=== PATIENT | female | born 1955 | race Caucasian/White ===

== ENCOUNTER 2017-04-21 09:37 | Emergency (ER) | payer OTHER ==
[2017-04-21 10:02] VITALS: BP 133/93
[2017-04-21] MEDS ORDERED: Albuterol 2.5 MG/3 ML NEB.SOL* (0.083%) INH ONE (10:21)
[2017-04-21] MEDS ORDERED: Ipratropium 0.5MG/2.5ML NEB* 0.5 MG/2.5 ML NEB.SOLN INH ONE (10:21)
--- NOTE | 2017-04-21 11:09 | UC ---
Respiratory Complaint HPI - HPI Summary HPI Summary: 62 yo smoker with productive cough and chest tightness x 3 days no f/c sinus pressure - History of Current Complaint Chief Complaint: UCRespiratory Stated Complaint: RESP ISSUE Time Seen by Provider: 04/21/17 10:13 Hx Obtained From: Patient Onset/Duration: Gradual Onset Severity Initially: Mild Severity Currently: Moderate Pain Intensity: 2 Pain Scale Used: 0-10 Numeric Character: Cough: Productive Aggravating Factors: Deep Breaths Alleviating Factors: Bronchodilator Associated Signs And Symptoms: Positive: Dyspnea, Wheezing, Nasal Congestion, Sinus Discomfort - Allergies/Home Medications Allergies/Adverse Reactions: Allergies Allergy/AdvReac Type Severity Reaction Status Date / Time Lisinopril Allergy Swelling Verified 07/28/16 08:34 Of Face,Lips,& Throat Varenicline [From Chantix] Allergy See Comment Verified 07/28/16 08:34 Home Medications: Home Medications Albuterol HFA INHALER* [Ventolin HFA Inhaler*] 1 puff PO PRN 04/21/17 [History] Levocetirizine Dihydrochloride [Xyzal Allergy 24Hr] 5 mg PO DAILY 04/21/17 [ History Confirmed 04/21/17] Omeprazole [Prilosec] 20 mg PO DAILY 04/21/17 [History Confirmed 04/21/17] PMH/Surg Hx/FS Hx/Imm Hx Cardiovascular History: Hypertension Respiratory History: COPD, Asthma, Bronchitis - Surgical History Surgical History: Yes Surgery Procedure, Year, and Place: csection x2. tonsillectomy as a child. CARDIAC CATH, 2010 - Family History Known Family History: Positive: Cardiac Disease - [place] - Social History Alcohol Use: Weekly Substance Use Type: None Smoking Status (MU): Current Every Day Smoker Type: Cigarettes Amount Used/How Often: 1 PPD - Immunization History Most Recent Influenza Vaccination: may 2016 Review of Systems Constitutional: Negative Skin: Negative Eyes: Negative ENT: Nasal Discharge, Sinus Congestion, Sinus Pain/Tenderness Respiratory: Cough Cardiovascular: Negative Gastrointestinal: Negative Genitourinary: Negative Motor: Negative Neurovascular: Negative Musculoskeletal: Negative Neurological: Negative Psychological: Negative All Other Systems Reviewed And Are Negative: Yes Physical Exam Triage Information Reviewed: Yes Appearance: Well-Appearing, No Pain Distress, Well-Nourished Vital Signs: Initial Vital Signs Temp 97.9 F 04/21/17 09:58 Pulse 103 04/21/17 09:58 Resp 18 04/21/17 09:58 BP 133/93 04/21/17 09:58 Pulse Ox 98 04/21/17 09:58 Vital Signs Reviewed: Yes Eyes: Positive: Conjunctiva Clear ENT: Positive: Hearing grossly normal, Pharynx normal, Nasal congestion, Nasal drainage. Negative: Tonsillar swelling, Trismus, Muffled/hoarse voice Dental Exam: Normal Neck: Positive: Supple, Nontender Respiratory: Positive: No respiratory distress, No accessory muscle use, Respiratory distress, Wheezing Cardiovascular: Positive: RRR, No Murmur. Negative: Tachycardia Musculoskeletal: Positive: ROM Intact, No Edema Neurological: Positive: Alert Psychological Exam: Normal Skin Exam: Normal UC Diagnostic Evaluation - Laboratory O2 Sat by Pulse Oximetry: 98 Re-Evaluation - Re-Evaluation First Eval Change: Improved Comment: better air movement/decreased wheezing Respiratory Course/Dx - Differential Dx/Diagnosis Provider Diagnoses: acute bronchitis with bronchospasm Discharge - Discharge Plan Condition: Stable Disposition: HOME Prescriptions: Amoxicillin PO (*) [Amoxicillin 875 MG (*)] 875 mg PO BID #20 tab Prednisone [Deltasone] 40 mg PO DAILY #10 tab Patient Education Materials: Acute Bronchitis (ED) Referrals: Collette Conrad MD [Primary Care Provider] - 5 Days Additional Instructions: use your albuterol inhaler 2 puffs 4x day for 5 days
== END 2017-04-21 11:24 | disposition home or self-care (01) ==
LOC: UCEAST 09:37
DX: J20.9 Acute bronchitis, unspecified (principal); I10 Essential (primary) hypertension; F17.210 Nicotine dependence, cigarettes, uncomplicated
CPT/HCPCS: 99212; G0463; J7644

== ENCOUNTER 2017-07-27 09:02 | Emergency (ER) | payer OTHER ==
--- NOTE | 2017-07-27 10:14 | UC ---
Skin Complaint HPI - HPI Summary HPI Summary: SEVERAL DAYS OF SPREADING RASH ON NOSE AND NASOLABIAL FOLDS. RASH IS RED, FLAKING, CRUSTY AND OOZING. PT REPORTS SHE BLOWS HER NOSE DAILY ALL DAY DUE TO BAD ALLERGIES. STARTED USING BACTROBAN OINTMENT AND BAG BALM. - History of Current Complaint Chief Complaint: UCSkin Time Seen by Provider: 07/27/17 09:56 Stated Complaint: RASH Hx Obtained From: Patient Onset/Duration: Gradual Onset, Lasting Days, Still Present Timing: Constant Onset Severity: Moderate Current Severity: Moderate Pain Intensity: 6 Pain Scale Used: 0-10 Numeric Location: Face Aggravating Factor(s): Touch Alleviating Factor(s): Nothing Associated Signs & Symptoms: Positive: Rash, Tenderness - Allergy/Home Medications Allergies/Adverse Reactions: Allergies Allergy/AdvReac Type Severity Reaction Status Date / Time Lisinopril Allergy Swelling Verified 07/27/17 09:18 Of Face,Lips,& Throat Varenicline [From Chantix] Allergy See Comment Verified 07/27/17 09:18 Home Medications: Home Medications Levothyroxine TAB* [Synthroid 150 MCG TAB*] 150 mcg PO EVERY OTHER DAY 07/27/17 [History Confirmed 07/27/17] Review of Systems Constitutional: Negative Skin: Rash Respiratory: Negative Cardiovascular: Negative Gastrointestinal: Negative All Other Systems Reviewed And Are Negative: Yes PMH/Surg Hx/FS Hx/Imm Hx Endocrine History: Hypothyroidism Cardiovascular History: Hypertension GI/ History: Gastroesophageal Reflux Psychological History: Depression - Surgical History Surgical History: Yes Surgery Procedure, Year, and Place: csection x2. tonsillectomy as a child. CARDIAC CATH, 2010 - Family History Known Family History: Positive: Cardiac Disease - [place], Hypertension - Social History Alcohol Use: Daily Alcohol Amount: 3-4 beers Substance Use Type: None Smoking Status (MU): Heavy Every Day Tobacco Smoker Type: Cigarettes Amount Used/How Often: 1 PPD Household Exposure Type: Cigarettes - Immunization History Most Recent Influenza Vaccination: 05/2017 Physical Exam Triage Information Reviewed: Yes Appearance: Well-Appearing, No Pain Distress, Well-Nourished Vital Signs: Initial Vital Signs Temp 96.8 F 07/27/17 09:09 Pulse 102 07/27/17 09:09 Resp 22 07/27/17 09:09 BP 174/102 07/27/17 09:09 Pulse Ox 98 07/27/17 09:09 Vital Signs Reviewed: Yes Eyes: Positive: Conjunctiva Clear ENT: Positive: Hearing grossly normal Neck: Positive: Supple Respiratory: Positive: No respiratory distress, No accessory muscle use Cardiovascular: Positive: Pulses Normal Abdomen Description: Positive: Soft Musculoskeletal: Positive: No Edema Neurological: Positive: Alert Psychological: Positive: Age Appropriate Behavior Skin: Positive: rashes - FLAKING, RAW, EXCORIATED, ERYTHEMATOUS RASH ON NOSE AND NASOLABIAL FOLDS WITH YELLOW CRUST Course/Dx - Diagnoses Provider Diagnoses: IMPETIGO Discharge - Discharge Plan Condition: Stable Disposition: HOME Prescriptions: Cephalexin CAP* [Keflex 500 CAP*] 1,000 mg PO BID #40 cap Patient Education Materials: Impetigo (ED) Referrals: Collette Conrad MD [Primary Care Provider] - If Needed Additional Instructions: CONTINUE BACTROBAN 3 TIMES DAILY. TAKE ANTIBIOTICS FOR FULL COURSE. FOLLOW-UP IF NOT IMPROVING WITH TREATMENT. YOUR BLOOD PRESSURE WAS ELEVATED TODAY. THIS MAY BE DUE TO YOUR ACUTE CONDITION. MONITOR AND FOLLOW-UP WITH YOUR PCP WITHIN 4 WEEKS IF IT HAS NOT RETURNED TO NORMAL.
[2017-07-27 10:18] VITALS: BP 170/100
== END 2017-07-27 10:20 | disposition home or self-care (01) ==
LOC: UCEAST 09:02
DX: L01.00 Impetigo, unspecified (principal); F17.210 Nicotine dependence, cigarettes, uncomplicated; Z88.8 Allergy status to other drugs, medicaments and biological substances; E03.9 Hypothyroidism, unspecified; I10 Essential (primary) hypertension
CPT/HCPCS: 99212; G0463

== ENCOUNTER 2017-08-23 09:43 | Emergency (ER) | payer OTHER ==
[2017-08-23] MEDS ORDERED: Ipratropium 0.5MG/2.5ML NEB* 0.5 MG/2.5 ML NEB.SOLN INH ONE (11:27)
[2017-08-23] MEDS ORDERED: Albuterol 2.5 MG/3 ML NEB.SOL* (0.083%) INH ONE (11:27)
[2017-08-23 12:10] VITALS: BP 140/88
--- NOTE | 2017-09-05 13:05 | UC ---
Cameron Valle Tecjoon, scribed for Kym John DO on 08/23/17 at 1131 . Respiratory Complaint HPI - HPI Summary HPI Summary: This patient is a 62 year old female presenting to [facility] with a chief complaint of red sores around nose and cough. Patient states her rash developed around a week ago and she saw her PCP for medication 3 days ago. In the same time, 3 days ago, she developed a nonproductive cough that, as of today, has developed into a productive cough with yellow phlegm. Patient states her chest hurts from coughing and she began to have yellow drainage from her nose. The pain is described as aching. The pain is rated 10/10 in severity. Symptoms aggravated by nothing. Symptoms alleviated by nothing. Patient additionally reports diaphoresis, chills. Patient denies sore throat, ear ache. - History of Current Complaint Chief Complaint: UCRespiratory Stated Complaint: RESP COMPLAINT Hx Obtained From: Patient Onset/Duration: Gradual Onset, Lasting Days - 3, Still Present Timing: Constant Severity Currently: Severe Pain Intensity: 10 Pain Scale Used: 0-10 Numeric Character: Cough: Nonproductive, Cough: Productive, Sputum Description: - yellow Aggravating Factors: Nothing Alleviating Factors: Nothing Associated Signs And Symptoms: Positive: Negative - sore throat, ear ache, Chills - Allergies/Home Medications Allergies/Adverse Reactions: Allergies Allergy/AdvReac Type Severity Reaction Status Date / Time Lisinopril Allergy Swelling Verified 07/27/17 09:18 Of Face,Lips,& Throat Varenicline [From Chantix] Allergy See Comment Verified 07/27/17 09:18 PMH/Surg Hx/FS Hx/Imm Hx - Additional Past Medical History Additional PMH: Impetigo Previously Healthy: No Cardiovascular History: Hypertension Psychological History: Depression - Surgical History Surgical History: Yes Surgery Procedure, Year, and Place: csection x2. tonsillectomy as a child. CARDIAC CATH, 2010 - Family History Known Family History: Positive: Cardiac Disease - [place], Hypertension - Social History Occupation: Employed Full-time Lives: With Family Alcohol Use: Daily Alcohol Amount: 3-4 beers Substance Use Type: None Smoking Status (MU): Heavy Every Day Tobacco Smoker Type: Cigarettes Amount Used/How Often: 1 PPD Household Exposure Type: Cigarettes - Immunization History Most Recent Influenza Vaccination: 05/2017 Review of Systems Constitutional: Negative - diaphoresis, chills Skin: Rash ENT: Negative - sore throat, ear ache, Nasal Discharge Respiratory: Cough Musculoskeletal: Other: - bodyache on extremities All Other Systems Reviewed And Are Negative: Yes Physical Exam Triage Information Reviewed: Yes Vital Signs: Initial Vital Signs Temp 98.3 F 08/23/17 10:05 Pulse 111 08/23/17 10:05 Resp 20 08/23/17 10:05 BP 138/86 08/23/17 10:05 Pulse Ox 97 08/23/17 10:05 - Additional Comments Appearance: Ill appearing, No Pain Distress, Well-Nourished Eyes: conjunctiva clear, no discharge ENT: Hearing grossly normal, no muffled/hoarse voice. TMs normal, negative tonsillar swelling, negative tonsillar exudate, negative trismus. Neck: Normal, Supple Respiratory/Lung Sounds: Scattered wheezing Cardiovascular: RRR, No murmur Musculoskeletal: Normal Neurological: Alert, muscle tone normal Psychiatric:Normal, age appropriate behavior Skin: Erythematous patch surrounding nose; honey-crusted inside and outside nasal passages. Diagnostic Evaluation - Laboratory O2 Sat by Pulse Oximetry: 97 Respiratory Course/Dx - Course Course Of Treatment: This patient is a 62 year old female presenting to [facility] with a chief complaint of red sores around nose and cough. Patient states her rash developed around a week ago and she saw her PCP for medication 3 days ago. In the same time, 3 days ago, she developed a nonproductive cough that, as of today, has developed into a productive cough with yellow phlegm. Patient states her chest hurts from coughing and she began to have yellow drainage from her nose. The pain is described as aching. The pain is rated 10/10 in severity. Symptoms aggravated by nothing. Symptoms alleviated by nothing. Patient additionally reports diaphoresis, chills. Patient denies sore throat, ear ache. In the [facility] course the patient was given Albuterol, Ipratropium. The patient will be diagnosed with Impetigo, Influenza, COPD exacerbation, and Bronchospasm. Patient will be discharged with prescription for Albuterol, benzonatate, doxycycline, mucinex, guaiatussin, Tamiflu, and deltasone and follow up from PCP. The patient is agreeable with this plan. Medications reviewed. Allergies reviewed. High blood pressure noted. The patient has been encouraged to quit smoking. - Differential Dx/Diagnosis Provider Diagnoses: Impetigo, Influenza, COPD exacerbation, Bronchospasm Discharge - Discharge Plan Condition: Stable Disposition: HOME Prescriptions: Albuterol HFA INHALER* [Ventolin HFA Inhaler*] 2 puff INH Q4H PRN #1 mdi PRN Reason: Sob/Wheezing Benzonatate CAP* [Tessalon 100 MG CAP*] 100 mg PO TID #30 cap DOXYcycline CAP(*) [DOXYcycline 100MG CAP(*)] 100 mg PO BID #20 cap guaiFENesin ER TAB [Mucinex*] 600 mg PO BID PRN #1 box PRN Reason: Cough Guaifenesin-Codeine [Guaiatussin AC] 5 - 10 ml PO BEDTIME PRN #100 ml MDD 10ml PRN Reason: Cough Oseltamivir CAP* [Tamiflu CAP*] 75 mg PO BID #10 cap predniSONE TAB* [Deltasone TAB*] 40 mg PO DAILY #10 tab Patient Education Materials: Impetigo (ED), Influenza (ED), COPD (Chronic Obstructive Pulmonary Disease) (ED), Bronchospasm (ED) Forms: *Work Release Referrals: Collette Conrad MD [Primary Care Provider] - 2 Days Additional Instructions: FOR INFLUENZA, PLEASE TAKE TAMIFLU 2 TIMES DAILY FOR 5 DAYS FOR YOUR COUGH: INHALED BRONCHODILATORS: You have received a prescription for an inhaled bronchodilator -- a medication which stimulates the airways in the lung to dilate. This improves the flow of air in asthma, bronchitis, and emphysema. These medicines have some similarity to adrenaline, and can cause similar side effects: shakiness, racing heart, and a sense of nervousness. These side effects decrease with time. Contact your doctor if these side effects are severe. Do not over-use the medicine. Too-frequent use of the inhaler may make it ineffective. Call your doctor if the inhaler is not controlling your symptoms at the prescribed doses. COUGH-SUPPRESSANT & EXPECTORANT MEDICATION: You are to use a cough medication as needed for relief of symptoms. This medicine is a combination of an expectorant (to make the mucous thinner and more easily "coughed up") and a cough suppressant (to reduce the frequency of coughing). The cough-suppressant medicine is related to narcotics. You may experience mild nausea and sleepiness. Some patients who are very sensitive to narcotics may have stomach pain from this medicine. Taking the medicine with food reduces these side effects. Do not drive or work with machinery until you know how this medicine affects you. The expectorant should have no side effects. Iodine-containing expectorants (such as organidin) should not be taken by persons with active thyroid disease unless approved by your doctor. Call the doctor if you develop shortness of breath, hives, rash, itching, lightheadedness, or severe nausea and vomiting. EXPECTORANT MEDICATION: WE SENT IN A SCRIPT FOR MUCINEX SO THAT IT IS EASIER FOR YOU TO PICK THE RIGHT MED AT THE PHARMACY. HOWEVER, YOU CAN ALSO GO TO THE [employer] [facility] AND BUY PLAIN GUAIFENESIN WITHOU BINDERS OR FILLERS. An expectorant medicine has been prescribed. This type of drug makes mucous thinner, helping the sinuses, nose, and bronchial tubes to remain free of pus and mucous. Expectorants make a cough less severe and more comfortable, and help infected sinuses drain. In general, antihistamines defeat the purpose of the expectorant by making mucous thicker. They should be avoided unless specifically recommended by your physician. TESSALON PERLES: You have received a prescription for Tessalon Perles (benzonatate). This is a non-narcotic medicine for relief of cough. It usually works in about 15- 20 minutes and lasts around four hours. Tessalon Perles should be swallowed. They should not be chewed or dissolved in the mouth (this can produce temporary numbing of the mouth and choking can occur). If you develop any adverse effects such as wheezing, shortness of breath, hives, rash, itching, or lightheadedness, please return at once. FOR IMPETIGO DOXYCYCLINE: Doxycycline (Vibramycin, Doryx) is an antibiotic of the tetracycline family. This type of drug is useful for infections of the respiratory tract and genital tract, and is sometimes used for intestinal infections. Unlike most tetracyclines, doxycycline can be taken with food. It is longer acting, and (usually) less prone to side effects than regular tetracycline. Tetracycline antibiotics can stain immature teeth and SHOULD NOT BE TAKEN BY CHILDREN, NURSING MOTHERS, OR WOMEN. Tetracyclines can make you more prone to sunburn. Abdominal cramping, nausea, and diarrhea are occasional side effects. Women may experience vaginal yeast infections. Call the doctor at once if you develop hives, itching, shortness of breath , or lightheadedness. DISCUSSED, DOXY ALSO INCREASES YOUR RISK OF SUNBURN. COVER UP WHEN YOU GO OUTSIDE. ANYTIME YOU TAKE AN ANTIBIOTIC, IT IS IMPORTANT TO REPLENISH THE BODY'S SUPPLY OF "GOOD BACTERIA." YOU CAN GET GOOD BACTERIA FROM HIGH QUALITY CULTURED FOODS SUCH LOCAL Y[employer]URT, SOUR KRAUT, KHOI BILLY, NATURALLY FERMENTED PICKLES AND PROBIOTIC DRINKS. YOU CAN ALSO GET GOOD BACTERIA FROM A PROBIOTIC SUPPLEMENT. The documentation as recorded by the Cameron randall Tecjoon accurately reflects the service I personally performed and the decisions made by me, Kym John DO.
== END 2017-08-23 12:23 | disposition home or self-care (01) ==
LOC: UCEAST 09:43
DX: L01.00 Impetigo, unspecified (principal); J11.1 Influenza due to unidentified influenza virus with other respiratory manifestations; J44.1 Chronic obstructive pulmonary disease with (acute) exacerbation; J98.01 Acute bronchospasm; I10 Essential (primary) hypertension; F32.9 Major depressive disorder, single episode, unspecified; Z88.8 Allergy status to other drugs, medicaments and biological substances; F17.210 Nicotine dependence, cigarettes, uncomplicated
CPT/HCPCS: 87502; 99212; G0463; J7644

== ENCOUNTER 2018-11-01 10:51 | Observation (INO) | payer OTHER ==
--- NOTE | 2018-11-01 11:15 | ED ---
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 She thinks she took the medicine around 0830 1000. She also drank beer. Pt is very somnolent at bedside. She denies pain, nausea, hurting herself. She has been on anti-depression medication for a year. Her son completed suicide around this date a few years ago. - History Of Current Complaint Chief Complaint: EDMentalHealth Time Seen by Provider: 11/01/18 11:08 Hx Obtained From: Patient Onset/Duration: Still Present Timing: Constant Character: Depressed Aggravating Factor(s): Recent Stress Has Suicidal: Reports: Thoughts, Demonstrates Gesture - med OD - Allergies/Home Medications Allergies/Adverse Reactions: Allergies Allergy/AdvReac Type Severity Reaction Status Date / Time lisinopril Allergy Swelling Verified 11/01/18 11:00 Of Face,Lips,& Throat varenicline Allergy Unknown Verified 11/01/18 11:00 Reaction Details Home Medications: Home Medications Albuterol HFA INHALER* [Ventolin HFA Inhaler*] 2 puff INH Q2HR PRN 11/01/18 [ History Confirmed 11/01/18] Aspirin EC TAB* [Ecotrin EC Low Dose 81 MG*] 81 mg PO BEDTIME 11/01/18 [History Confirmed 11/01/18] Naproxen Sodium [Aleve] 440 mg PO QAM PRN 11/01/18 [History Confirmed 11/01/18] Omeprazole (Nf) [Prilosec (NF)] 40 mg PO DAILY 11/01/18 [History Confirmed 11/01] Venlafaxine EXT RELEASE CAP* [Effexor Xr CAP*] 150 mg PO DAILY 11/01/18 [ History Confirmed 11/01/18] PMH/Surg Hx/FS Hx/Imm Hx Previously Healthy: No Endocrine/Hematology History: Reports: Hx Thyroid Disease - HYPO Denies: Hx Diabetes Cardiovascular History: Reports: Hx Hypertension Respiratory History: Denies: Hx Asthma, Hx Chronic Obstructive Pulmonary Disease (COPD) GI History: Denies: Hx Ulcer Musculoskeletal History: Denies: Hx Scoliosis Neurological History: Denies: Hx Headaches, Other Neuro Impairments/Disorders - Surgical History Surgery Procedure, Year, and Place: csection x2. tonsillectomy as a child. CARDIAC CATH, 2010 Infectious Disease History: No Infectious Disease History: Denies: Hx Clostridium Difficile, Hx Hepatitis, Hx Human Immunodeficiency Virus (HIV), Hx of Known/Suspected MRSA, Hx Shingles, Hx Tuberculosis, History Other Infectious Disease, Traveled Outside the [place] in Last 30 Days - Family History Known Family History: Positive: Cardiac Disease - [place], Hypertension - Social History Occupation: Employed Full-time Lives: With Family Alcohol Use: Daily Alcohol Amount: 3-4 beers Hx Substance Use: No Substance Use Type: Reports: None Hx Tobacco Use: Yes Smoking Status (MU): Heavy Every Day Tobacco Smoker Type: Cigarettes Amount Used/How Often: 1 PPD Review of Systems Positive: Fatigue Negative: Nausea Psychological: Other - pos: sleepy Positive: Depressed All Other Systems Reviewed And Are Negative: Yes Physical Exam - Summary Physical Exam Summary: Constitutional: Well-developed, Well-nourished, Alert. (-) Distressed Skin: Warm, Dry HENT: Normocephalic; Atraumatic. Dry oral mucosa. Eyes: Conjunctiva normal. Pupils are 2-3mm bilaterally Neck: Musculoskeletal ROM normal neck. (-) JVD, (-) Stridor, (-) Tracheal deviation Cardio: Rhythm regular, rate normal, Heart sounds normal; Intact distal pulses; The pedal pulses are 2+ and symmetric. Radial pulses are 2+ and symmetric. (-) Murmur Pulmonary/Chest wall: Effort normal. (-) Respiratory distress, (-) Wheezes, (-) Rales Abd: Soft, (-) tenderness, (-) Distension, (-) Guarding, (-) Rebound. Good bowel sounds. Musculoskeletal: (-) Edema Lymph: (-) Cervical adenopathy Neuro: Alert, Oriented x3 Psych: Sedated, sleepy. Depressed admits to feeling suicidal at times. Triage Information Reviewed: Yes Vital Signs On Initial Exam: Initial Vitals Temp Pulse Resp BP Pulse Ox 98.4 F 119 18 164/121 94 11/01/18 10:56 11/01/18 10:56 11/01/18 10:56 11/01/18 10:56 11/01/18 10:56 Vital Signs Reviewed: Yes Diagnostics - Vital Signs Vital Signs Temp Pulse Resp BP Pulse Ox 11/01/18 10:56 98.4 F 119 18 164/121 94 - Laboratory Result Diagrams: 11/01/18 11:59 11/01/18 18:21 Lab Statement: Any lab studies that have been ordered have been reviewed, and results considered in the medical decision making process. - EKG 1204 Cardiac Rate: NL - 98 bpm EKG Rhythm: Sinus Rhythm Summary of EKG Findings: Normal sinus rhythm at 98 bpm, normal DC, normal QRS, prolonged QTc 537, normal axis, normal ST, normal T-waves. 1546 Cardiac Rate: NL - 83 bpm EKG Rhythm: Sinus Rhythm Summary of EKG Findings: Normal sinus rhythm at 83 bpm, normal DC, normal QRS, prolonged QTc of 505, normal axis, normal ST, T-wave inversions in V1 and V2. QT prolongation improved from previous EKG done today. Re-Evaluation - Re-Evaluation 1 Re-Evaluation Time: 15:05 Change: Unchanged Comment: Providing update to patient's partner. 2 Re-Evaluation Time: 15:31 Change: Improved Comment: Pt is more alert, she has dry mouth. Course/Dx - Course Course Of Treatment: Pt is a 63 y/o F brought in by ambulance and police presenting s/p overdose of Flexeril and HCTZ as SI attempt around 1527-4724. She also drank beer. Pt is very somnolent at bedside. She has been on anti- depression medication for a year. Her son completed suicide around this date a few years ago. PE finds the pt sedated and sleepy, depressed, admits to feeling suicidal at times. UA is unremarkable. Toxicology is negative. Lab work shows MCH: 33; chemistry shows decreased Na, K, Cl; BUN: 5, BUN/C ratio: 7.2, glucose: 102, alkaline phosphatase: 116. EKG shows normal sinus rhythm at 98 bpm with prolonged QTc 537. Repeat EKG shows NSR at 83bpm, improved QT prolongation 505 from previous EKG today, T-wave inversion in V1 and V2. Patient given fluids, activated charcoal, potassium chloride, nicotine inhaler in ED. Poison control recommends 24 hour medical observation due to pt's unknown ingestion and taking Effexor. Consulted with Dr. Shepherd, hospitalist, who will accept patient for admission. - Differential Dx/Clinical Impression Provider Diagnosis: Overdose, Suicidal ideation - Physician Notifications Discussed Care Of Patient With: Jazmin L Dill - hospitalist Time Discussed With Above Provider: 15:44 Instructed by Provider To: Admit As Inpatient - Critical Care Time Critical Care Time: 30-74 min - 35 mins CCT Discharge - Sign-Out/Discharge Documenting (check all that apply): Patient Departure - ADMIT Patient Received Moderate/Deep Sedation with Procedure: No - Discharge Plan Disposition: ADMITTED TO [facility] - Attestation Statements Document Initiated by Scribe: Yes Documenting Scribe: Greg Raymundo Provider For Whom Scribe is Documenting (Include Credential): Dr. Rayne Russo MD Scribe Attestation: I, Greg Raymundo, scribed for Dr. Rayne Russo MD on at 1917. Consult Consult: [id number]: Spoke with Poison Control Due to pt's unknown ingestion, and taking Effexor, they recommended 24 hours medical observation.
[2018-11-01] MEDS ORDERED: NS 0.9% 1000 ML** 1,000 ML IV ONE (11:38)
[2018-11-01] MEDS ORDERED: Charcoal 50 GM/Sorbitol* 50 GM/240 ML BTL NG TUBE ONE (11:39)
[2018-11-01 12:25] LABS: ABS Basophils 0 10^3/ul (0-0.2); ABS Eosinophils 0 10^3/ul (0-0.6); ABS Lymphocytes 1.2 10^3/ul (1.0-4.8); ABS Monocytes 0.5 10^3/ul (0-0.8); ABS Neutrophils 3.4 10^3/ul (1.5-7.7); ABS Nucleated RBC 0 10^3/ul; Eosinophil % 0.2 %; Hematocrit 39 % (33-41); Hemoglobin 13.3 g/dL (12.0-16.0); Lymphocyte % 23.6 %; Mean Corpuscular HGB Conc 35 g/dL (31-36); Mean Corpuscular Hemoglobin 33 pg (27-31); Mean Corpuscular Volume 96 fL (80-97); Mean Platelet Volume 7.7 fL (7.4-10.4); Nucleated Red Blood Cells % 0; Platelet Count 168 10^3/uL (150-450); Red Blood Count 4.03 10^6 /uL (3.70-4.87); Red Cell Distribution Width 13 % (10.5-15); White Blood Count 5.2 10^3/uL (3.5-10.8)
[2018-11-01 12:45] LABS: ALT 18 U/L (7-52); AST 30 U/L (13-39); Albumin 3.9 g/dL (3.2-5.2); Albumin/Globulin Ratio 1.5 (1-3); Alkaline Phosphatase 116 U/L (34-104); Anion Gap 9 mmol/L (2-11); BUN/Creatinine Ratio 7.2 (8-20); Blood Urea Nitrogen 5 mg/dL (6-24); CO2 Carbon Dioxide 27 mmol/L (22-32); Calcium 9.1 mg/dL (8.6-10.3); Chloride 94 mmol/L (101-111); EGFR African American 104.7 (>60); EGFR Non-African American 86.5 (>60); Globulin 2.6 g/dL (2-4); Glucose 102 mg/dL (70-100); Potassium 3.4 mmol/L (3.5-5.0); Sodium 130 mmol/L (135-145); Total Protein 6.5 g/dL (6.4-8.9)
[2018-11-01 12:46] LABS: Acetaminophen < 15 mcg/mL; Alcohol < 10 mg/dL (<10); Salicylate < 2.50 mg/dL (<30)
[2018-11-01 12:59] LABS: TSH (Thyroid Stimulating Horm) 0.43 mcIU/mL (0.34-5.60)
[2018-11-01 14:04] LABS: Urine Appearance Clear; Urine Bilirubin Negative (Negative); Urine Blood Negative (Negative); Urine Color Straw; Urine Glucose Negative (Negative); Urine Ketones Negative (Negative); Urine Nitrite Negative (Negative); Urine Protein Negative (Negative); Urine Urobilinogen Negative (Negative)
[2018-11-01] MEDS ORDERED: Potassium Chlor TAB* 20 MEQ TAB.ER PO ONE (14:31)
[2018-11-01 15:03] LABS: Barbiturates Urine Screen None Detected (None Detect); Benzodiazepine Urine Screen None Detected (None Detect); Urine Cannabinoids Screen None Detected (None Detect)
[2018-11-01] MEDS ORDERED: Nicotine Inhaler* 10 MG AMP INH ONE (15:28)
[2018-11-01] MEDS ORDERED: Mouth Piece, Nicotine* 1 EACH CARTRIDGE ONE (15:33)
[2018-11-01 16:39] LABS: Magnesium 1.8 mg/dL (1.9-2.7)
[2018-11-01] MEDS ORDERED: NS 0.9% 1000 ML** 1,000 ML IV SCH (17:45)
[2018-11-01] MEDS ORDERED: Melatonin 3 MG TAB PO PRN (17:55)
[2018-11-01] MEDS ORDERED: Albuterol HFA INHALER* 8 gm MDI INH PRN (17:56)
[2018-11-01] MEDS ORDERED: Magnesium Sulfate 1 GM IV* 1 GM/100 ML BAG IV ONE (17:58)
[2018-11-01] MEDS ORDERED: Acetaminophen TAB* 325 MG PO PRN (18:01)
[2018-11-01 18:47] LABS: BUN/Creatinine Ratio 3.8 (8-20); Calcium 8.7 mg/dL (8.6-10.3); EGFR African American 88.2 (>60); EGFR Non-African American 72.9 (>60); Potassium 3.9 mmol/L (3.5-5.0)
--- NOTE | 2018-11-01 18:53 | HP ---
HISTORY AND PHYSICAL: DATE OF ADMISSION: 11/01/18 PRIMARY CARE PROVIDER: Dr. Collette Conrad. CHIEF COMPLAINT: Intentional overdose. TECHNICAL SUPERVISOR: Marco Antonio Anna, patient's . CODE STATUS: Full. SOURCE OF INFORMATION: HPI is obtained from review of medical records and the patient. She is a fair historian. HISTORY OF PRESENT ILLNESS: 63-year-old female with past medical history of depression, hypertension, tobacco use, hypothyroidism, GERD, chronic low back pain and COPD, who presents to the ER somnolent after presumed intentional overdose this morning on day of admission. 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 Left work and essentially quit her job , came home and took "whatever was in the medicine cabinet" sometime in the morning between 9 or 10 o'clock. She thinks she took Flexeril, Benadryl, venlafaxine, and HCTZ, "whatever was left in the bottles" which amounted to a handful of close somewhere between 10-20 or so pills, although she is a poor historian on this matter. She also had 1 beer at this time and then went to sleep and she said her intention was to sleep and "never wake up." She has never tried to hurt herself in the past, but says she has taken antidepressants since 2005 and this is the worst her depression has ever been. Her found her somnolent and brought her to the ER. EMERGENCY ROOM COURSE: In the ER, temperature was 98.4. She was tachycardic to low 100s. Blood pressure was 164/121. She was satting 94% on room air. She was somnolent when she arrived and slow to wake up, but over the course of her 3 to 4 hours stay in the emergency room, she did become more awake, alert, and reactive. Her labs at that time showed hyponatremia in the 130, potassium 3.4 and mag at 1.8. An EKG was performed, which showed a prolonged QTc at greater than 500 and Poison Control was contacted, who recommended charcoal, electrolyte repletion, and continued monitoring with medical observation for 24 hours. The repeat EKG was completed at roughly 4 o'clock and remained with prolonged QTc. The hospitalist team did accept this admission for a stable disposition to the medical floor. PAST MEDICAL HISTORY: Depression, hypertension, tobacco use, hypothyroid, GERD , chronic low back pain, and COPD. PAST SURGICAL HISTORY: Two sections and tonsillectomy. MEDICATIONS: 1. Albuterol 2 puffs inhaled q.2 hours. 2. Aspirin 81 mg p.o. at bedtime. 3. Cyclobenzaprine 10 mg p.o. q.p.m. 4. Hydrochlorothiazide 25 mg p.o. daily. 5. Levothyroxine 150 mcg alternating with a 175 mcg. 6. Naproxen 440 mg p.o. q.a.m. 7. Omeprazole 40 mg p.o. daily. 8. Venlafaxine 150 mg p.o. daily. ALLERGIES: LISINOPRIL and CHANTIX. FAMILY HISTORY: Father is unknown. Mother is from a heart attack. SOCIAL HISTORY: She works at [employer] as a housekeeper/custodian/laundry worker. She lives with a supportive . Tobacco: She smokes 1 pack per day. Alcohol: Three to four beers per day. Denies illicits. REVIEW OF SYSTEMS: The patient denies fever, chills, malaise. HEENT: Denies vision changes, headaches. Does endorse mild scratchy sore throat. Cardiovascular: Denies chest pain, palpitations, or orthopnea. Respiratory: Denies shortness of breath, cough, or chest pain. GI: Denies nausea, vomiting , diarrhea or abdominal pain. : Denies dysuria, hematuria. Musculoskeletal : Denies myalgias or arthralgias. Skin: Denies any rashes or lesions. Neurologic: Denies any focal weakness or numbness. Psychiatric: She does induce worsening depression and anxiety. Denies auditory hallucinations, visual hallucinations. She does have current passive suicidality with no plan on my interview. Endocrine: Denies polyuria or polydipsia. Heme: Denies easy bruising or bleeding. PHYSICAL EXAMINATION GENERAL APPEARANCE: This is a well-appearing woman, lying in bed, tearful on interview with good eye contact, in no acute distress. VITAL SIGNS: At the time of physical exam are blood pressure 147/93, pulse 86, respiratory rate 20, afebrile. HEENT: Normocephalic, atraumatic. Pupils are equal and reactive. Extraocular muscles are intact. Oropharynx, she has dry mucous membranes, but otherwise no abnormalities. NECK: Supple with no supraclavicular or cervical lymphadenopathy. RESPIRATORY: She is clear to auscultation bilaterally, although does have referred upper airway signs consistent with mild congestion. CARDIAC: She has a regular rate and rhythm. No murmurs, rubs, or gallops. GASTROINTESTINAL: Belly is soft, nontender, nondistended. Normoactive bowel sounds in all 4 quadrants. No hepatosplenomegaly. MUSCULOSKELETAL: She moves all 4 extremities spontaneously and has palpable pulses bilaterally on lower extremities. NEUROLOGIC: Cranial nerves II through XII are intact. She has no focal neurologic deficits and no sensation deficits. She is A and O x4. PSYCHIATRIC: As above, she is tearful during the exam with appropriate eye contact and some degree of insight on this presentation. She is a fair historian, although guarded. DIAGNOSTIC STUDIES/LAB DATA: CBC: White blood cell count 5.2, hemoglobin 13.3 , hematocrit 39, platelets 168. Chemistries: Sodium of 130, potassium 3.4, chloride 94, carbon dioxide 27, BUN 5, creatinine 0.69, glucose 102. AST 30, ALT 18, alkaline phosphatase 116. TSH 0.43. UA was done and is normal. Toxicology was done that was negative for salicylates, acetaminophen, opiates, barbiturates, PCP, amphetamines, benzos, cocaine, cannabinoids, and serum alcohol of less than 10. EKG was normal sinus rhythm with prolonged QTc, is greater than 500 mm on 2 EKGs in the emergency room. EKGs were reviewed by myself. ASSESSMENT AND PLAN: [id number] with past medical history of depression, hypertension, tobacco use, hypothyroidism, gastroesophageal reflux disease, chronic low back pain, and COPD, who presents to the emergency room somnolent after presumed intentional overdose on polypharmacy and possibly Flexeril, Benadryl, HCTZ, venlafaxine, or some combination of all 4. On presentation, she has hyponatremia, hypokalemia, and a prolonged QTc and will be admitted to the medical service for further treatment evaluation prior to mental health clearance. 1. Overdose. s/p charcoal --Monitor EKG q 8 hours, place the patient on tele --Repeat a BMP We will give magnesium 2 g now and replete lytes aggressively. --IV fluids NS @ 100 cc per hour and follow with Poison Control. 2. Depression. --Place a mental health consult for insomnia. We will offer melatonin, nonsedating medications. 3. Hypothyroidism. --continue levothyroxine. 4. Hypertension. --Start Amlodipine and would stay away from diuretics given the hyponatremia and hypokalemia. 5. Gastroesophageal reflux disease. --PPI 6. Chronic obstructive pulmonary disease with mild upper respiratory infection and no e/o exacerbation --Start Mucinex and inhalers. 7. Tobacco use. We will offer nicotine patch and nicotine inhaler. 8. DVT prophylaxis. The patient will be placed on Lovenox. 9. Code status is full. 10. Disposition. The patient is stable for disposition to [address] [place] [address] with one-to-one sitter and suicide precautions with mental health consult planned for 11/02/18. Plan of care is discussed with the patient and her family and they are in agreeance with plan and have no further questions. [id number]/[facility] #: [id number] SYDNEE
[2018-11-01] MEDS ORDERED: Enoxaparin(*) 40 MG/0.4 ML SYR SUBCUT SCH (19:30)
[2018-11-01] MEDS: guaiFENesin ER TAB 600 MG PO SCH (20:03)
[2018-11-02] MEDS ORDERED: Levothyroxine TAB* 150 MCG TAB PO SCH (06:00)
[2018-11-02 07:04] LABS: Albumin 3.5 g/dL (3.2-5.2); Albumin/Globulin Ratio 1.5 (1-3); BUN/Creatinine Ratio 4.7 (8-20); Calcium 8.7 mg/dL (8.6-10.3); EGFR African American 114.1 (>60); EGFR Non-African American 94.3 (>60); Globulin 2.4 g/dL (2-4); Potassium 3.8 mmol/L (3.5-5.0); Total Bilirubin 0.2 mg/dL (0.2-1.0); Total Protein 5.9 g/dL (6.4-8.9)
--- NOTE | 2018-11-02 07:38 | PN ---
Subjective Date of Service: 11/02/18 Interval History: HD #2 on 11/02 63F PMH depression, HTN, COPD, GERD, hypothyroid presented with intentional overdose. Overnight: No acute events, VSS, mildly HTN + UOP +BM Labs: Mild hypoNA, hypoK resolved EKG: Prolonged still from last night, though improving, poison control following This morning: pleasant and well wants to meet with psych Objective Active Medications: Acetaminophen (Tylenol Tab*) 650 mg PO Q4H PRN PRN Reason: FEVER/PAIN Albuterol (Ventolin Hfa Inhaler*) 2 puff INH Q2HR PRN PRN Reason: SHORTNESS OF BREATH Amlodipine Besylate (Norvasc Tab*) 10 mg PO DAILY [facility] Enoxaparin Sodium (Lovenox(*)) 40 mg SUBCUT Q24H [facility] Last Admin: 11/01/18 20:03 Dose: 40 mg Guaifenesin (Mucinex*) 600 mg PO BID [facility] Last Admin: 11/01/18 20:03 Dose: 600 mg Levothyroxine Sodium (Synthroid Tab*) 150 mcg PO DAILY@0600 [facility] Last Admin: 11/02/18 04:56 Dose: 150 mcg Melatonin (Melatonin) 6 mg PO BEDTIME PRN PRN Reason: SLEEP Last Admin: 11/01/18 20:03 Dose: 6 mg Pantoprazole Sodium (Protonix Tab*) 40 mg PO DAILY [facility] Vital Signs - 8 hr 11/02/18 03:13 Temperature 97.1 F Pulse Rate 71 Respiratory 16 Rate Blood Pressure 141/75 (mmHg) O2 Sat by Pulse 97 Oximetry Oxygen Devices in Use Now: None Appearance: Tired appearing woman in NAD, pleasant Eyes: No Scleral Icterus Ears/Nose/Mouth/Throat: NL Teeth, Lips, Gums, Mucous Membranes Moist Neck: NL Appearance and Movements; NL JVP, Trachea Midline Respiratory: Symmetrical Chest Expansion and Respiratory Effort, - - Distant with mild upper airway sounds, otherwise CTABL without wheeze Cardiovascular: NL Sounds; No Murmurs; No JVD, RRR, No Edema Lymphatic: No Cervical Adenopathy Extremities: No Edema Skin: No Rash or Ulcers Neurological: Alert and Oriented x 3 Result Diagrams: 11/01/18 11:59 11/02/18 06:15 Assess/Plan/Problems-Billing Assessment: 63F PMH depression, HTN, COPD, GERD, hypothyroid presented with intentional overdose on Flexeril, HCTZ, Venlafaxine, Benadryl, some combo of all 4. Prolonged QTC in ER with HypoNA, HypoK, s/p Charcoal. - Patient Problems (1) Overdose Current Visit: Yes Status: Acute Code(s): T50.901A - POISONING BY UNSP DRUG/ MEDS/BIOL SUBST, ACCIDENTAL, INIT SNOMED Code(s): 55537992 Comment: - Poison controlto sign off today - Continue NS 100cc/hr for hypoNA, though this is most likely from HCTZ, stop after addnl L - EKG until qtc improves - Replete 'lytes aggressively - MH consult - Continue 1:1 (2) Depression Current Visit: Yes Status: Acute Code(s): F32.9 - MAJOR DEPRESSIVE DISORDER , SINGLE EPISODE, UNSPECIFIED SNOMED Code(s): 96397188 Comment: - Holding Venlafaxine at this time, Prozac x 1 for withdrawal, psych to make formal recs (3) HTN (hypertension) Current Visit: Yes Status: Acute Code(s): I10 - ESSENTIAL (PRIMARY) HYPERTENSION SNOMED Code(s): 25124309 Comment: - Start Amlodipine 10mg, avoid diueretics (4) Hypothyroid Current Visit: Yes Status: Acute Code(s): E03.9 - HYPOTHYROIDISM, UNSPECIFIED SNOMED Code(s): 92669701 Comment: - Continue synthroid (5) COPD (chronic obstructive pulmonary disease) Current Visit: Yes Status: Acute Code(s): J44.9 - CHRONIC OBSTRUCTIVE PULMONARY DISEASE, UNSPECIFIED SNOMED Code(s): 13061237 Comment: - Offer inhaler, mucinex (6) GERD (gastroesophageal reflux disease) Current Visit: Yes Status: Acute Code(s): K21.9 - GASTRO-ESOPHAGEAL REFLUX DISEASE WITHOUT ESOPHAGITIS SNOMED Code(s): 482246944 Comment: - PPI (7) Tobacco use Current Visit: Yes Status: Acute Code(s): Z72.0 - TOBACCO USE SNOMED Code( s): 404632509 Comment: - Nicotine patch, inhaler PRN (8) DVT prophylaxis Current Visit: Yes Status: Acute Code(s): EHH6677 - SNOMED Code(s): 367748096 Comment: - LMWH (9) Full code status Current Visit: Yes Status: Acute Code(s): Z78.9 - OTHER SPECIFIED HEALTH STATUS SNOMED Code(s): 477643698 Status and Disposition: D/C to home if cleared by psych
[2018-11-02] MEDS ORDERED: Nicotine Inhaler* 10 MG AMP INH PRN (07:48)
[2018-11-02] MEDS ORDERED: NS 0.9% 1000 ML** 1,000 ML IV SCH (08:00)
[2018-11-02] MEDS: guaiFENesin ER TAB 600 MG PO SCH (08:16)
[2018-11-02] MEDS ORDERED: Pantoprazole TAB * 40 MG TAB PO SCH (09:00)
[2018-11-02] MEDS ORDERED: amLODIPine TAB* 5 MG PO SCH (09:00)
[2018-11-02] MEDS ORDERED: Nicotine PATCH 14 MG/24 HR* PATCH TRANSDERM SCH (09:00)
[2018-11-02] MEDS ORDERED: FLUoxetine CAP* 10 MG PO ONE (11:08)
[2018-11-02 11:58] VITALS: BP 136/78
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
--- NOTE | 2018-11-02 16:43 | DS ---
CC: Dr. Collette Conrad DATE OF ADMISSION: 11/01/2018. DATE OF DISCHARGE: 11/02/2018. PRIMARY CARE PHYSICIAN: Dr. Collette Conrad. DISPOSITION AT DISCHARGE: Stable PRIMARY DIAGNOSIS: Intentional overdose. SECONDARY DIAGNOSES: Hypertension, depression, COPD, GERD, hypothyroid. MEDICATIONS ON DISCHARGE: 1. Nicotine patch 14 mg apply to skin daily. 2. Venlafaxine 225 mg p.o. daily. 3. Omeprazole 40 mg p.o. daily. 4. Naproxen 440 mg p.o. q.a.m. 5. Levothyroxine 175 mcg and 150 mcg alternating every other day. 6. Hydrochlorothiazide 25 mg p.o. daily. 7. Cyclobenzaprine 10 mg p.o. q.p.m. 8. Aspirin 81 mg p.o. at bedtime. Medication changes on this hospitalization: The addition of nicotine patch as well as the increase of Venlafaxine from 150 to 225 mg. HISTORY OF PRESENT ILLNESS: The patient with the above past medical history present to the emergency room on 11/01/2018, brought in by ambulance when her found her somnolent and with slurred speech in the home. The patient was arousable and reported has been that she had taken a handful of pills intentionally and she said she wanted to go to sleep forever. She was brought to the emergency room for further evaluation. Upon interview in the emergency room, the patient reports significant social stress and having a difficult time at her job, as well as it was the anniversary of her son's suicide. She became acutely sad, essentially quit her job by just leaving without telling anyone, and then came home and took "whatever was in the medicine cabinet." She thinks she took a combination of Flexeril, Benadryl, Venlafaxine, and HCTZ around 10 to 20 pills, although she was a poor historian on the matter furthermore. She drank beer and then said she went to sleep with the intention of harming herself. She has never had a history of hurting herself in the past, but she has taken antidepressants since 2005, although this is the worst her depression has ever been. In the emergency room, she was afebrile, she was tachycardic to low 100s, her blood pressure was high, and she was satting well on room air. She was initially somnolent. Poison Control was contacted who recommended charcoal, QTC monitoring and evaluation by the Medical Service team. Her labs showed a mild hyponatremia and hypokalemia, and the patient was accepted to the Hospitalist Service. HOSPITAL COURSE BY PROBLEM: 1. Intentional overdose: The patient was seen by Psychiatry and cleared on hospital day two. She had mild electrolyte abnormalities on admission and a prolonged QTC which improved with aggressive electrolyte repletion with potassium, magnesium, and IV fluids. Repeat QTC on subsequent exams showed shortening from greater than 500 to between 400 and 450. Psychiatry felt that she could be followed up as an outpatient and showed significant remorse for this event. Her also agreed that a safe discharge plan would be to home with follow-up in one week at [facility]. They also recommended that she increase the dose of her antidepressant and follow-up closely. 2. Depression: As above. The patient had acute decompensation of depression that culminated in an intentional overdose attempt and will be discharged with outpatient follow-up as per inpatient psychiatry recommendations and did increase her Venlafaxine dose to 225 mg. 3. Hypertension: Her home blood pressure meds were held initially and she was given Amlodipine while her electrolytes normalized. On the day of discharge, her potassium and sodium are normal and she is discharged on her home HCTZ to start 11/03/2018. 4. COPD: The patient has a mild upper respiratory infection during her hospitalization. She was offered inhalers. She has no evidence of pneumonia or acute infection and we counseled smoking cessation. 5. Hypothyroid: Her home hypothyroid medications were continued. During this hospitalization her TSH was found to be normal. On the day of discharge, the patient is awake, alert, interactive, pleasant, ambulating, tolerating diet, and forward looking. She will take approximately two weeks off of work to focus on mental health and to get established with a counselor as well as a psychiatrist to help prevent these kinds of decompensations in the future. Her labs on the day of discharge are: Sodium 134, potassium 3.8, anion gap 5, creatinine 0.64. EKG on the day of discharge, the morning of, shows normal sinus rhythm with a QTC of 450. Poison Control did sign off on this patient on 11/02/2018 and recommended close follow-up with her primary care provider within a week. She will call Dr. Collette Conrad and arrange for outpatient labs to be drawn. ITEMS TO BE FOLLOWED UP ON POST DISCHARGE: 1. Electrolyte abnormalities: The patient has mild hyponatremia and hypokalemia which is most likely from overdose of HCTZ use. We recommend that she follows up with Dr. Collette Conrad and has unrestricted diet. She can resume her low dose HCTZ one pill once a day and is deemed low risk for further harm to herself. 2. Depression: The patient intends to follow-up with [facility] and establish a counselor, as well as a prescriber if needed. She wants to continue on increased Venlafaxine dose which was called in for her and she will have a primary care provider call in a longer dose. TIME SPENT: Forty-five minutes were spent in the planning of this discharge with over half of that spent directly at the bedside of the patient providing direct patient care. The patient and her family are aware of discharge plan and are comfortable with her going to home, and have no further questions on the day of discharge. If there are any questions about the care provided to this patient during this hospitalization, please do not hesitate to contact us. [id number]/[facility] #: [id number] [place]DN[place]
[2018-11-02] MEDS ORDERED: Nicotine Patch Removal NOTE FOLLOW UP SCH (21:00)
[2018-11-03] MEDS ORDERED: Venlafaxine EXT RELEASE CAP* 75 MG PO SCH (09:00)
== END 2018-11-02 16:20 | disposition home or self-care (01) ==
LOC: ED 10:51 → MED 17:45
PROVIDERS: ADMIT Internal Medicine; ATTEND Internal Medicine
DX: T48.1X2A Poisoning by skeletal muscle relaxants [neuromuscular blocking agents], intentional self-harm, initial encounter (principal); T50.2X2A Poisoning by carbonic-anhydrase inhibitors, benzothiadiazides and other diuretics, intentional self-harm, initial encounter; Y92.9 Unspecified place or not applicable; F17.210 Nicotine dependence, cigarettes, uncomplicated; I10 Essential (primary) hypertension; R53.83 Other fatigue; F32.9 Major depressive disorder, single episode, unspecified; J44.9 Chronic obstructive pulmonary disease, unspecified; E03.9 Hypothyroidism, unspecified; Z79.82 Long term (current) use of aspirin; K21.9 Gastro-esophageal reflux disease without esophagitis; M54.5 Low back pain
CPT/HCPCS: 36415; 80048; 80053; 80307; 80320; 80329; 81003; 83735; 84443; 85025; 93005; 96361; 96365; 96372; 99285; A9270-GY; G0378; G0480; J1650; J3475

== ENCOUNTER 2024-08-13 10:44 | Observation (INO) ==
[2024-08-13 11:36] LABS: ABS Lymphocytes 0.4 10^3/uL (1.0-4.8); ABS Monocytes 0.3 10^3/uL (0.0-0.9); ABS Neutrophils 5.8 10^3/uL (1.5-7.6); ABS Nucleated RBC 0.01 10^3/ul; Eosinophil % 0.1 %; Hematocrit 38.4 % (35-45); Hemoglobin 13.1 g/dL (11.5-14.3); Lymphocyte % 5.6 %; Mean Corpuscular Hemoglobin 32.5 pg (27-33); Mean Corpuscular Hgb Conc 34.1 g/dL (31-36); Mean Corpuscular Volume 95.2 fL (80-97); Mean Platelet Volume 8.7 fL (7.5-11.2); Nucleated Red Blood Cells % 0.1 %/100WBC (0.0-0.8); Platelet Count 142 10^3/uL (150-450); Red Blood Count 4.04 10^6/uL (3.63-4.92); Red Cell Distribution Width 13.5 % (12-17); White Blood Count 6.4 10^3/uL (3.8-11.8)
[2024-08-13] MEDS: Albuterol/Ipratropium NEB.SOL (2.5/0.5 MG) 3 ML NEB.SOLN INH ONE (11:39)
[2024-08-13] MEDS: methylPREDNISolone SOD SUCC 125 mg 2 ML VIAL IV ONE (11:52)
[2024-08-13] MEDS: Lactated Ringers 1000 ml BAG IV.FLUID IV ONE (11:52)
[2024-08-13 11:59] LABS: High Sens Troponin Baseline 5 pg/mL (<15)
[2024-08-13 12:09] LABS: ALT 25 U/L (7-52); AST 46 U/L (13-39); Albumin 4.4 g/dL (3.5-5.7); Albumin/Globulin Ratio 1.5 (1-3); Alkaline Phosphatase 118 U/L (35-149); Anion Gap 9 mmol/L (2-16); Blood Urea Nitrogen 7 mg/dL (6-24); C Reactive Protein 138.61 mg/L (<8.01); CO2 Carbon Dioxide 24 mmol/L (22-32); Chloride 97 mmol/L (101-111); Creatinine, Serum 0.86 mg/dL (0.51-0.95); Globulin 2.9 g/dL (2-4); Glucose 110 mg/dL (70-100); Lipase < 10 U/L (11.0-82.0); Magnesium 1.7 mg/dL (1.9-2.7); Potassium 3.5 mmol/L (3.5-5.0); Sodium 130 mmol/L (135-145); Total Bilirubin 0.4 mg/dL (0.2-1.0); Total Protein 7.3 g/dL (6.4-8.9)
[2024-08-13] MEDS: Iohexol 350 (CONTRAST) 500 ML MDV IV ONE (12:32)
[2024-08-13 13:02] LABS: High Sensitivity Troponin 1 Hr 3 pg/mL (<15)
[2024-08-13 13:20] LABS: Urine Appearance Clear; Urine Bilirubin Negative (Negative); Urine Blood Negative (Negative); Urine Color Light-Yellow; Urine Glucose Negative (Negative); Urine Ketones Negative (Negative); Urine Nitrite Negative (Negative); Urine Protein Negative (Negative); Urine Specific Gravity 1.029 (1.002-1.030); Urine Urobilinogen Negative (Negative)
[2024-08-13] MEDS ORDERED: Polyethylene Glycol 3350 17 GM PACKET PO PRN (14:51)
[2024-08-13] MEDS ORDERED: Al Hydrox/Mg Hydrox/Simet LIQ 30 ML UDC PO PRN (14:51)
[2024-08-13] MEDS: cefTRIAXone 1 gm/50 mL D5W 1 GM/50 ML BAG IV ONE (15:08)
[2024-08-13] MEDS ORDERED: Albuterol/Ipratropium NEB.SOL (2.5/0.5 MG) 3 ML NEB.SOLN INH PRN (15:28)
[2024-08-13] MEDS: Enoxaparin 40 MG/0.4 ML SYR SUBCUT SCH (15:44)
[2024-08-13] MEDS: Azithromycin 500 mg/250 ml NS 500 MG/250 ML BAG IVPB SCH (15:54)
[2024-08-14] MEDS: methylPREDNISolone SOD SUCC 40 mg/ml 1 ml VIAL IV SCH (01:22)
[2024-08-14 06:19] LABS: ABS Lymphocytes 0.5 10^3/uL (1.0-4.8); ABS Monocytes 0.2 10^3/uL (0.0-0.9); ABS Neutrophils 4.5 10^3/uL (1.5-7.6); Hematocrit 37.6 % (35-45); Hemoglobin 12.8 g/dL (11.5-14.3); Lymphocyte % 9.3 %; Mean Corpuscular Hemoglobin 32.7 pg (27-33); Mean Corpuscular Volume 96.1 fL (80-97); Mean Platelet Volume 8.1 fL (7.5-11.2); Platelet Count 128 10^3/uL (150-450); Red Blood Count 3.91 10^6/uL (3.63-4.92); Red Cell Distribution Width 12.9 % (12-17); White Blood Count 5.2 10^3/uL (3.8-11.8)
[2024-08-14 06:45] LABS: Calcium 9.4 mg/dL (8.6-10.3); Creatinine, Serum 0.82 mg/dL (0.51-0.95); eGFR CKD-EPI 78.4 (>60)
[2024-08-14] MEDS: Venlafaxine XR 75 mg PO SCH (08:49)
[2024-08-14] MEDS ORDERED: Venlafaxine XR 75 mg PO SCH (09:00)
[2024-08-14] MEDS ORDERED: cefTRIAXone 1 gm/50 mL D5W 1 GM/50 ML BAG IV SCH (15:00)
[2024-08-14] MEDS: cefTRIAXone 1 gm/50 mL D5W 1 GM/50 ML BAG IV SCH (15:39)
[2024-08-14] MEDS: Azithromycin 500 mg/250 ml NS 500 MG/250 ML BAG IVPB SCH (16:49)
[2024-08-14 17:17] VITALS: BP 131/64
== END 2024-08-14 19:30 | disposition home health service (06) ==
LOC: ED 10:44 → EDHOLD 10:44 → MED 16:34
PROVIDERS: ADMIT Internal Medicine; ATTEND Internal Medicine